=== PATIENT | female | born 2000 | race Caucasian/White ===

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

== ENCOUNTER 2021-09-21 21:29 | Emergency (ER) | payer OTHER, SELFPAY ==
[2021-09-21 21:30] VITALS: BP 146/91; PULSE 101; RESP 16; TEMP 36.3; O2SAT 100; BMI 31.1
--- NOTE | 2021-09-21 23:07 | EDS_ITS ---
HPI History of Present Illness Chief Complaint: Cough Informant: patient and parent Narrative Narrative: Patient's been having waxing and waning wheezing for a little over a month. She was seen in early August. She had negative COVID test. She was given albuterol. She states that helps but it only helps for a few hours then her wheezing comes back. She occasionally gets into coughing fits. But she is not really bringing up sputum. She has no fevers chills myalgias nausea vomiting diarrhea. She does not feel overall sick. She really does not feel short of breath as much as she has the wheezing. She has no history of asthma or pulmonary disease. No travel. No fevers chills. She does not have a history of significant allergies. She was seen in early August and was told this is likely allergies though. PFSH [facility] Medical History no medical history Home Medications norethindrone 1 mg-ethinyl estradiol 20 mcg (24)-iron 75 mg (4) tablet (Blisovi 24 Fe) 1 tab PO DAILY 09/21/21 [History Last Taken Unknown] prednisone 20 mg tablet 60 mg PO DAILY #15 tabs 09/21/21 [Rx Last Taken Unknown] Allergy/AdvReac Type Severity Reaction Status Date / Time No Known Allergies Allergy Verified 09/21/21 21:30 Surgical History no surgical history Social History Smoking Status: Never smoker ROS ROS ED Constitutional Constitutional ED: Denies chills, fever(s) or sweats ENT ENT ED: Denies rhinorrhea or sore throat Cardiovascular Cardiovascular: Denies chest pain or palpitations Respiratory/Chest Respiratory/Chest: Reports cough and other Details: See history of present illness. Gastrointestinal Gastrointestinal: Denies nausea or vomiting Musculoskeletal Musculoskeletal: Denies arthralgias or myalgias Integumentary Denies rash Neurologic Neurologic: Denies paresthesias or weakness Psychiatric Psychiatric: Denies anxiety Endocrine Endocrinology: Denies polydipsia or polyuria Hematologic/Lymphatic Hematologic/Lymphatic: Denies easy bleeding or easy bruising Allergic/Immunologic Allergic/Immunologic ED: Denies urticaria EXAM Physical Exam Const Vital Signs: 09/21/21 21:30 09/21/21 21:39 Temperature 97.3 F L Temperature Source Temporal Pulse Rate 101 H Respiratory Rate 16 Respiratory Effort Normal Non-Labored Respiratory Depth Normal Respiratory Pattern Normal Blood Pressure 146/91 H Blood Pressure Mean 109 Pulse Ox 100 Oxygen Delivery Method Room Air Room Air Positive well nourished Constitutional Narrative: Patient is sitting quietly in comfortably in the bed General Appearance ED: NAD DARIAN Reports moist mucous membranes Eyes EOMs intact bilaterally Neck no lymphadenopathy Neck Narrative: No stridor. Resp normal respiratory effort Resp Narrative: She does not look short of breath. Carries on a normal conversation. But she does have expiratory wheezing. No rhonchi or rales. Auscultation: wheezes; Negative for rales, rhonchi or diminished lung sounds Cardio regular rate and regular rhythm GI non-tender and non-distended Back/Spine no CVA tenderness Extremity General Extremety ED: Negative for edema or tenderness General Extremity: Negative for edema Neuro Sensorium / Orientation: alert Speech: speech normal Psych mental status grossly normal Skin no wounds MDM MDM Radiography Diagnostic Testing: Clinical Impression(s) from Imaging Studies Chest X-Ray 09/21/21 23:10 IMPRESSION: Normal x-ray examination of the chest. Electronically Signed: Kevin Barth DO at 23:25 EDT Reading Location ID and State: [address] [place] [address] Tel [phone], Service support , Discharge Plan Triage Chief Complaint: Cough ED Provider: Arun Sharma Dx/Rx/DC Orders Clinical Impression: Acute bronchospasm Instructions: ED Bronchospasm (Adult) Prescriptions: New prednisone 20 mg tablet 60 mg PO DAILY Qty: 15 0RF No Action norethindrone-e.estradiol-iron [Blisovi 24 Fe] 1 mg-20 mcg (24)/75 mg (4) tablet 1 tab PO DAILY Primary Care Provider: Care Physician,No Primary Referrals: Rafaela German MD [STAFF PHYSICIAN] - 3-5 Days if not improving Care Physician,No Primary [Primary Care Provider] - Disposition Disposition: Home, Self Care
--- NOTE | 2021-09-21 23:10 | RAD_ITS ---
STUDY: X-RAY CHEST REASON FOR EXAM: Female, 21 years old. Cough. Shortness of breath on exertion. Chest tightness. TECHNIQUE: PA and lateral views of the chest. COMPARISON: None. FINDINGS: The lungs are clear and expanded. There is no demonstrated pleural abnormality. Normal size heart. Normal mediastinum and girish. Normal visualized pulmonary arteries. Normal visualized aortic arch and descending thoracic aorta. Normal visualized thoracic spine. Normal visualized ribs, clavicles, and shoulders. There is no demonstrated abnormality of the visualized soft tissue structures of the upper abdomen. RAD/Chest PA and Lateral IMPRESSION: Normal x-ray examination of the chest. Electronically Signed: Kevin Barth DO at 23:25 EDT ,
[2021-09-21] MEDS: predniSONE 20 MG Tablet 60 MG PO (23:25)
[2021-09-21] MEDS: Ipratropium/Albuterol Sulfate 3 ML AMPUL.NEB INHALATION (23:31)
[2021-09-21 23:34] VITALS: PULSE 101; RESP 16
[2021-09-21 23:35] VITALS: RESP 17
[2021-09-21 23:47] VITALS: BP 122/84; PULSE 75; RESP 15
== END 2021-09-21 23:47 | disposition home or self-care (01) ==
PROVIDERS: Emergency Provider Emergency Medicine; Visit Provider Emergency Medicine
DX: J98.01 Acute bronchospasm (principal)
CPT/HCPCS: 71046; 94640; 99282